=== PATIENT | female | born 1995 | race Caucasian/White ===

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

== ENCOUNTER 2017-01-20 18:42 | Emergency (ER) | payer OTHER, SELFPAY ==
[~2017-01-20] VITALS: Ht 152.4 cm; Wt 49.5 kg
[~2017-01-20 18:42] MED LIST: ZOFR4TAB3 PO
--- NOTE | 2017-01-20 19:24 | REP ---
Clinical: Trauma. Technique: AP, lateral, bilateral oblique views of the right ankle. Findings: Mild lateral swelling consistent with inversion injury. No acute fracture or dislocation. Joint spaces and ankle mortise are intact. No subcutaneous emphysema or radiodense foreign body. Impression: Mild lateral swelling. No acute fracture or dislocation. Signed by Gaston Hill MD 01/20/2017 07:14 P
[2017-01-20] MEDS ORDERED: IBUPROFEN 800 MG TAB PO ONE (20:45)
[2017-01-20] MEDS ORDERED: IBUPROFEN 800 MG TAB As Ordered ONE (20:46)
[2017-01-20 21:01] VITALS: BP 117/66
== END 2017-01-20 21:02 | disposition home or self-care (01) ==
LOC: M ED 18:42
DX: S93.401A Sprain of unspecified ligament of right ankle, initial encounter (principal); W10.9XXA Fall (on) (from) unspecified stairs and steps, initial encounter; Y92.099 Unspecified place in other non-institutional residence as the place of occurrence of the external cause; Y93.9 Activity, unspecified; Y99.9 Unspecified external cause status

== ENCOUNTER 2017-02-04 12:19 | Emergency (ER) | payer SELFPAY ==
[~2017-02-04] VITALS: Ht 152.4 cm; Wt 46.8 kg
[2017-02-04 12:20] VITALS: BP 109/63
[2017-02-04] MEDS ORDERED: ELIM5CRE2 TOP (15:11)
[2017-02-04] MEDS ORDERED: diphenhydrAMINE 25 MG CAP PO ONE (15:15)
== END 2017-02-04 15:29 | disposition home or self-care (01) ==
LOC: M ED 12:19
DX: B86 Scabies (principal); F17.210 Nicotine dependence, cigarettes, uncomplicated

== ENCOUNTER 2018-01-05 14:28 | Emergency (ER) | payer MEDICAID, SELFPAY, OTHER ==
[2018-01-05] MEDS: BENZONATATE 100 MG CAP PO (15:48)
[2018-01-05] MEDS: ACETAMINOPHEN 325 MG TAB PO (15:48)
== END 2018-01-05 16:04 | disposition home or self-care (01) ==
LOC: M ED 14:28
DX: J02.9 Acute pharyngitis, unspecified (principal)
CPT/HCPCS: 87880

== ENCOUNTER 2018-03-08 22:22 | Emergency (ER) | payer OTHER, MEDICAID ==
[2018-03-08] MEDS: BACTRIM 160MG/800MG DS TAB PO (23:45)
== END 2018-03-08 23:52 | disposition home or self-care (01) ==
LOC: M ED 22:22
DX: S51.842A Puncture wound with foreign body of left forearm, initial encounter (principal); W45.8XXA Other foreign body or object entering through skin, initial encounter; Y92.89 Other specified places as the place of occurrence of the external cause
CPT/HCPCS: 73090

== ENCOUNTER 2018-12-21 09:57 | Emergency (ER) | payer OTHER, SELFPAY ==
[~2018-12-21] VITALS: Ht 152.4 cm; Wt 48.6 kg
[~2018-12-21 09:57] MED LIST changes: +BACT800T5 PO; +ELIM5CRE2 TOP; +TESS100C PO; +ZOFR4TAB14 PO; -ZOFR4TAB3 PO
[2018-12-21 11:04] LABS: BASO % 0.4 % (0.0-1.0); EOS # 0.2 10^3/uL (0.0-0.50); EOS % 2.9 % (0.0-3.0); HEMATOCRIT 35.8 % (36.0-47.0); HEMOGLOBIN 11.9 g/dl (12.0-15.5); LYMPH % 27.2 % (24.0-44.0); MEAN CORPUSCULAR HGB CONC 33.2 g/dl (32.0-36.5); MEAN CORPUSCULAR VOLUME 87.1 fl (80.0-96.0); MONO # 0.9 10^3/uL (0.0-0.8); MONO % 12.7 % (0.0-5.0); NEUTROPHILS % 56.5 % (36.0-66.0); PLATELET COUNT, AUTOMATED 261 10^3/uL (150-450); RED BLOOD COUNT 4.11 10^6/uL (4.00-5.40); WHITE BLOOD COUNT 7.2 10^3/uL (4.0-10.0)
[2018-12-21 11:32] VITALS: BP 107/65
[2018-12-21] MEDS ORDERED: AUGM875T28 PO (11:36)
[2018-12-21] MEDS ORDERED: LOTR1CRE3 TOP (11:41)
[2018-12-21] MEDS ORDERED: BENZOCAINE 20% GEL 9GM TUBE (ANBESOL MAX STRENGTH) TOP ONE (11:45)
== END 2018-12-21 12:26 | disposition home or self-care (01) ==
LOC: M ED 09:57
DX: K02.9 Dental caries, unspecified (principal); K08.89 Other specified disorders of teeth and supporting structures; J02.9 Acute pharyngitis, unspecified; K05.10 Chronic gingivitis, plaque induced; Z72.0 Tobacco use

== ENCOUNTER 2019-05-30 18:56 | Inpatient (IN) | payer OTHER, SELFPAY ==
[~2019-05-30] VITALS: Ht 152.4 cm; Wt 44.8 kg
[2019-05-30] MEDS: NS 500 ML in IV 1 EA IV ONE (00:40)
[~2019-05-30 18:56] MED LIST changes: +AUGM875T28 PO; +LOTR1CRE3 TOP
[2019-05-30] MEDS ORDERED: NS 1,000 ML IV ONE (19:15)
[2019-05-30 19:54] LABS: HEMATOCRIT 37.1 % (36.0-47.0); HEMOGLOBIN 12.1 g/dl (12.0-15.5); MEAN CORPUSCULAR HEMOGLOBIN 28.5 pg (27.0-33.0); MEAN CORPUSCULAR HGB CONC 32.6 g/dl (32.0-36.5); MEAN CORPUSCULAR VOLUME 87.5 fl (80.0-96.0); PLATELET COUNT, AUTOMATED 256 10^3/uL (150-450); RED BLOOD COUNT 4.24 10^6/uL (4.00-5.40); WHITE BLOOD COUNT 23.6 10^3/uL (4.0-10.0)
--- NOTE | 2019-05-30 20:14 | ECGEPIP ---
[facility] - ED Test Date: 2019-05-30 Pat Name: FORTUNATO LAY Department: Room: - Gender: Female Utility Bill [employer]or: : 1995 Requested By: RYLEE Norman PA-C Order Number: [id number] Reading MD: Barber Samayoa Measurements Intervals Ray Rate: 128 P: 74 IN: 112 QRS: 88 QRSD: 88 T: 33 QT: 286 QTc: 418 Interpretive Statements SINUS TACHYCARDIA WITH SHORT IN INTERVAL RATE CHANGE COMPARED TO 11/22/14 Electronically Signed on 05-30-2019 20:13:31 EST by Barber Samayoa
[2019-05-30 20:23] LABS: ALBUMIN 3.2 GM/DL (3.2-5.2); ALT/SGPT 14 U/L (12-78); BILIRUBIN,DIRECT 0.1 MG/DL (0.0-0.2); BLOOD UREA NITROGEN 18 MG/DL (7-18); CALCIUM LEVEL 8.8 MG/DL (8.5-10.1); CARBON DIOXIDE LEVEL 24 MEQ/L (21-32); CHLORIDE LEVEL 101 MEQ/L (98-107); CK-MB VALUE MASS < 1.0 NG/ML (<3.6); CPK CREATINE PHOSPHOKINASE 85 U/L (26-192); CREATININE FOR GFR 1.01 MG/DL (0.55-1.30); GLOMERULAR FILTRATION RATE > 60.0 (>60); GLUCOSE, FASTING 107 MG/DL (70-100); MB/CK RELATIVE INDEX 1.18 (< OR =4); POTASSIUM SERUM 4.3 MEQ/L (3.5-5.1); SODIUM LEVEL 135 MEQ/L (136-145); TROPONIN I < 0.02 NG/ML (< 0.10)
[2019-05-30 20:28] LABS: LYMPHOCYTES 4 % (16-44); METAMYELOCYTES 1 % (0-0); NEUTROPHILS 93 % (28-66)
[2019-05-30 20:29] LABS: TOXIC VACUOLATION 2+
[2019-05-30 20:30] LABS: HCG, SERUM QUALITATIVE NEGATIVE (NEGATIVE); PLATELET ESTIMATE NORMAL (NORMAL)
[2019-05-30] MEDS ORDERED: diphenhydrAMINE INJ 50MG/ML VIAL (J1200) IV STA (20:40)
[2019-05-30] MEDS ORDERED: ceFAZolin SOD 1 GM in D5W MINI-BAG PLUS 50 ML IV ONE (20:45)
[2019-05-30] MEDS ORDERED: METOCLOPRAMIDE INJ 10MG/2ML VIAL (J2765) IV ONE (20:45)
[2019-05-30] MEDS ORDERED: KETOROLAC 30 MG/ML VIAL (J1885) IV ONE (20:45)
[2019-05-30 21:21] LABS: ERYTHROCYTE SEDIMENTATION RATE 48 mm/hr (0-20)
--- NOTE | 2019-05-30 21:52 | REPVR ---
PROCEDURE INFORMATION: Exam: US Right Non-Vascular Joint or Other Extremity Structure, Limited Upper Extremity Exam date and time: 05/30/2019 9:39 PM Age: 24 years old Clinical indication: Injury or trauma; Injury history: Spider bite; Initial encounter; Arm, lower; Right; Additional info: Swelling, spider bite, fever TECHNIQUE: Imaging protocol: Right US Non-Vascular Joint or Other Extremity Structure. Limited exam of the upper extremity. COMPARISON: No relevant prior studies available. FINDINGS: Soft tissues: Imaging at the area of clinical concern demonstrates a irregular fluid collection in the subcutaneous fat measuring 6 x 4 x 8 mm. This is surrounded by edema in the surrounding fat. Findings may be related to reactive changes from an insect bite versus a small superficial abscess. Bones/joints: Unremarkable. IMPRESSION: Imaging at the area of clinical concern demonstrates a irregular fluid collection in the subcutaneous fat. This is surrounded by edema in the surrounding fat. Findings may be related to reactive changes from an insect bite versus a small superficial abscess. Electronically signed by: Kayode Bey On 05/30/2019 21:52:22 PM
--- NOTE | 2019-05-30 22:02 | REPVR ---
PROCEDURE INFORMATION: Exam: CT Head Without Contrast Exam date and time: 05/30/2019 9:51 PM Age: 24 years old Clinical indication: Syncope and collapse; Additional info: Headache, fever, dizzy, syncope TECHNIQUE: Imaging protocol: Computed tomography of the head without contrast. Radiation optimization: All CT scans at this facility use at least one of these dose optimization techniques: automated exposure control; mA and/or kV adjustment per patient size (includes targeted exams where dose is matched to clinical indication); or iterative reconstruction. COMPARISON: CT Head without contrast 07/27/2015 6:51 PM FINDINGS: Brain: Normal. No hemorrhage. Unremarkable white matter. No mass effect. Ventricles: Normal. No ventriculomegaly. Bones/joints: Unremarkable. No acute fracture. Sinuses: Visualized sinuses are unremarkable. No fluid levels. Mastoid air cells: Visualized mastoid air cells are well aerated. Soft tissues: Unremarkable. IMPRESSION: No acute intracranial abnormality. Electronically signed by: Kayode Bey On 05/30/2019 22:01:40 PM
[2019-05-30] MEDS ORDERED: LevoFLOXacin IV 750 MG in IV 1 EA IV SCH (23:00)
[2019-05-30] MEDS ORDERED: NS 1,000 ML IV SCH (23:45)
[2019-05-30] MEDS ORDERED: ONDANSETRON 4MG/2ML VIAL (J2405) IV PRN (23:45)
[2019-05-31 00:04] LABS: APPEARANCE, URINE CLOUDY (CLEAR); BACTERIA, URINE AUTO 2+ (NEGATIVE); BILIRUBIN, URINE AUTO NEGATIVE (NEGATIVE); BLOOD, URINE BLOOD 1+ (NEGATIVE); COLOR, URINE AMBER (YELLOW); GLUCOSE, URINE (UA) AUTO NEGATIVE (NEGATIVE); KETONE, URINE AUTO NEGATIVE (NEGATIVE); LEUKOCYTE ESTERASE, URINE AUTO 3+ (NEGATIVE); MUCUS, URINE SMALL (NEGATIVE); NITRITE, URINE AUTO NEGATIVE (NEGATIVE); PROTEIN, URINE AUTO 2+ mg/dL (NEGATIVE); RBC, URINE AUTO 23 /HPF (0-3); SPECIFIC GRAVITY URINE AUTO 1.017 (1.002-1.035); SQUAMOUS EPITHELIAL CELL UR AU 2 /HPF (0-6); UROBILINOGEN, URINE AUTO 0.2 mg/dL (0.0-2.0); WBC, URINE AUTO TNTC /HPF (0-3)
[2019-05-31] MEDS: NS 500 ML in IV 1 EA IV ONE (00:40)
--- NOTE | 2019-05-31 00:40 | ED PDOC ---
Post-Departure Follow-Up ED procedure Note - IV access Patient admitted awaiting bed and notified by nursing loss of IV access. EJ veins noted. Attempted x 1 on right side unsuccessul. Switched to left side, skin prepped with alcohol swab, 20 guage IV inserted into left EJ vein . IV withdraws and flushes. Secured with Tegaderm. Tolerated well. ANJELICA POLLOCK MD May 31, 2019 00:40
--- NOTE | 2019-05-31 00:54 | HPEPDOC ---
[facility] Medical History & Physical Date of Admission May 31, 2019 Date of Service: May 31, 2019 History and Physical CHIEF COMPLAINT: Not feeling well, syncope, insect bite HISTORY OF PRESENT ILLNESS: This is a 24-year-old female presenting to ER after having a syncopal episode this morning and not feeling well for the last 5 days. Endorses possible spider bite Tuesday morning for she woke up with swelling of the right arm as well as a burning sensation. She states she was unable to make a fist and had red blotchy rash. She thought she was having allergic reaction two 25 mg Benadryl on Tuesday and noticed these symptoms resolved Tuesday morning. She also endorses on Tuesday she began to experience abdominal discomfort, dysuria. She describes the pain as sharp and stabbing in nature and occurs when she is trying to void. She describes it dysuria as burning in nature, foul- smelling and very concentrated for shes had decreased by mouth intake. She states that since Tuesday she has noticed nonbilious nonbloody vomiting and has lost some weight (~15) since then. She denies any constipation, diarrhea, or nausea. She does endorses having palpitations, subjective fevers, chills/rigor, night sweats and left back pain. She denies having any chest pain, shortness of breath, history of asthma, no other skin breakdown, lymphadenopathy, headaches. She does endorse having lightheadedness and dizziness. She did have a syncopal episode early this morning around 3 AM when she was in the kitchen. She states she was found down next to her stove by her . She believes she hit her head but denies any headaches or double vision. She thought she was feeling tire d so she went to bed without further intervention.As the day progressed she noticed she continued not to feel well so she came to the ER for further evaluation. In the ER she was found to be tachycardic, with a Tmax 100.8 and MAP of 60. She had a leukocytosis of 23.6, ESR 48, was given 1 dose of cefazolin and hospitalist team was then called for admission. PAST MEDICAL HISTORY: 1. Marijuana abuse 2. History of IV meth use, sober 2 years 3. Tobacco abuse HOME MEDICATIONS: Please see below. ALLERGIES: Please see below PAST SURGICAL HISTORY: None SOCIAL HISTORY: Lives with: and kids and feels safe at home. Employment: [employer] Tobacco use: Current smoker .5ppd- 2ppd for the last 2 years. ETOH: Denies,Illicit drug use: Hx of IV meth abuse, sober 2 years. CODE STATUS: Full code FAMILY HISTORY: Reviewed and noncontributory REVIEW OF SYSTEMS: 10 systems reviewed and negative other than HPI PHYSICAL EXAMINATION: VITAL SIGNS: See below GENERAL: Pleasant 24 year old female laying in bed, awake alert oriented speaking in complete sentences no acute distress HEENT: Atraumatic, normocephalic, pupils equal round and reactive, slight skin abrasion underneath the right eye healing wound from Dr. breaux, very poor dentition CARDIOVASCULAR: S1 S2 present, tachycardic rate, regular rhythm on telemetry no audible murmurs, rubs, gallops. RESPIRATORY: Clear to auscultation bilaterally. ABDOMINAL: Bowel sounds present abdomen soft, suprapubic tenderness with no di stention, guarding or rigidity. Positive Santana punch/CVA tenderness in the left. Tattoo appreciated on the left lower quadrant. No obvious skin breakdown noted. EXTREMITIES: No lower extremities cyanosis, edema or calf tenderness. Poor nail hygiene with no cyanosis. Good capillary refills less than 3 seconds, 5 x 6 indurated swelling appreciated in the medial aspect of the right forearm distal proximal to the elbow. The tender but no erythema and no increased warmth or obvious bite mcgraw noted. Healing burn on the left forearm NEUROLOGICAL: Spontaneously moves all 4 extremities cranial 2 through 12 grossly intact no gross focal deficits appreciated PSYCHOLOGICAL: Appropriate LABORATORY DATA: See below. MICROBIOLOGY: Please see below. IMAGIN05/31/[address] without contrast No acute intracranial abnormality. Right upper extremity ultrasound Imaging at the area of clinical concern demonstrates a irregular fluid collection in the subcutaneous fat. This is surrounded by edema in the surrounding fat. Findings may be related to reactive changes from an insect bite versus a small superficial abscess. ASSESSMENT & PLAN: This is a 24-year-old female who presented to the ER for syncope and not feeling well for the last 5 days. PROBLEMS: 1. Syncope. States loss of consciousness early this morning (~3 AM) unwitnessed possibly hit head. CT of the head was negative for any acute abnormalities. Possibly secondary to decreased by mouth intake/dehydration due to Pyelonephritis and decreasd PO intakere. Will obtain orthostatics 1 with IV fluids. s/p 1.5 L bolus in the ER. Well continue with IV fluids at 100 mL per hour for another 1.5 L. Will encourage good PO intake and Zofran PRN for nausea. Will monitor with remote telemetry for she was tachycardic in the ER and she had a syncopal episode. 2. Pyelonephritis. Complained of dysuria, suprapubic tenderness and CVA tenderness on exam this evening. Ordered UA. Imaging not needed for clinical picture consistent with pyelonephritis therefore well treat for acute pyelonephritis. Start Levaquin 750 mg every 24 hours for at 5 days and IV fluids. 3. Insect bite/spider bite. Forearm has 5 x 6 indurated swelling which is slightly tender to touch but no erythema, no increased warmth or obvious bite gladys noted on exam. Ultrasound shows irregular fluid collection in the subcutaneous fat consistent with insect right versus a small superficial abscess. s/p cefazolin X1 in the ER. At this current time no further antibiotics and will apply warm compress to help with swelling. Well monitor while admitted. 4. Tobacco and marijuana abuse. Congratulated her from reducing from 2 packs a day to half a pack a day. Educated the patient of the risks of smoking and the benefits of quitting. All her questions were answered today. Understands can provide nicotine patches if needed while admitted. 5. History of IV meth use, sober 2 years DVT PROPHYLAXIS: Lovenox DISPOSITION: Admit inpatient at least 2 midnights to [facility] Vital Signs Vital Signs Date Time Temp Pulse Resp B/P (MAP) Pulse Ox O2 Delivery O2 Flow Rate FiO2 05/31/19 00:45 129 18 95/51 (66) 100 Room Air 05/30/19 21:21 99.6 Laboratory Data Labs 24H Laboratory Tests 2 05/30/19 19:13: Nucleated Red Blood Cells % (auto) 0.0, Neutrophils 93H, Band Neutrophils 2, Lymphocytes (Manual) 4L, Metamyelocytes 1H, Toxic Vacuolation 2+, Platelet Estimate NORMAL, Erythrocyte Sedimentation Rate 48H, Anion Gap 10, Glomerular Filtration Rate > 60.0, Lactic Acid Level 1.6, Calcium Level 8.8, Total Bilirubin 1.0, Direct Bilirubin 0.1, Aspartate Amino Transf (AST/SGOT) 28, Alanine Aminotransferase (ALT/SGPT) 14, Alkaline Phosphatase 114, Total Creatine Kinase 85, Creatine Kinase MB < 1.0, Creatine Kinase MB Relative Index 1.18, Troponin I < 0.02, C-Reactive Protein, Quantitative 17.80H, Total Protein 7.0, Albumin 3.2, Albumin/Globulin Ratio 0.84L, Human Chorionic Gonadotropin, Qual NEGATIVE 05/30/19 23:40: Urine Color CAMILLE, Urine Appearance CLOUDYH, Urine pH 5.0, Urine Specific Myton 1.017, Urine Protein 2+H, Urine Glucose (Auto)(UA) NEGATIVE, Urine Ketones (Auto) NEGATIVE, Urine Blood 1+H, Urine Nitrite NEGATIVE, Urine Bilirubin NEGATIVE, Urine Urobilinogen 0.2, Urine Leukocyte Esterase (Auto) 3+H, Urine WBC (Auto) TNTCH, Urine RBC (Auto) 23H, Urine Hyaline Casts (Auto) 0, Urine Bacteria (Auto) 2+H, Urine Squamous Epithelial Cells 2, Urine Mucus (Auto) SMALL, Urine Sperm (Auto) CBC/BMP Laboratory Tests 05/30/19 19:13 Microbiology Microbiology 05/30/19 Blood Culture, Received Pending 05/30/19 Blood Culture, Received Pending Home Medications No Active Prescriptions or Reported Meds Allergies Coded Allergies: No Known Allergies (Unverified , 03/08/18) GME ATTESTATION My faculty preceptor for this patient encounter was physically present during the encounter and was fully available. All aspects of the patient interview, examination, medical decision making process, and medical care plan development were reviewed and approved by the faculty preceptor. The faculty preceptor is aware and concurs with the plan as stated in the body of this note and will attest to such by his/her cosignature. ATTENDING NOTE I personally saw, examined Ms. Finley and discussed her presentation and our assessment and management with Dr. Trujillo and I agree with her assessment and plan. Briefly, Ms. Finley is a young mother with a history of remote PSUD with med, currently occasionally uses marijuana, who had a recent insect bite with transient swelling and redness of her forearm that has since improved and subsequently developed dysuria that progressed to include left flank pain with nausea, emesis,fevers, chills and poor PO intake for days, with 2 reported syncopal episodes on the day of admission. In the ED she was septoid with +SIRS with hypotention, tachycardia, fever and had a source so she was given 1.5L of fluids and we started her on levaquin and continued fluids while her blood and urine cultures are pending. YANICK TRUJILLO DO May 31, 2019 00:54 MINGO PRAJAPATI MD May 31, 2019 06:57
[2019-05-31 04:00] VITALS: BP 109/63
[2019-05-31 07:54] VITALS: BP 101/56
[2019-05-31 08:09] LABS: HEMATOCRIT 34.4 % (36.0-47.0); HEMOGLOBIN 10.9 g/dl (12.0-15.5); MEAN CORPUSCULAR HEMOGLOBIN 28.4 pg (27.0-33.0); MEAN CORPUSCULAR HGB CONC 31.7 g/dl (32.0-36.5); MEAN CORPUSCULAR VOLUME 89.6 fl (80.0-96.0); PLATELET COUNT, AUTOMATED 197 10^3/uL (150-450); RED BLOOD COUNT 3.84 10^6/uL (4.00-5.40); WHITE BLOOD COUNT 21.7 10^3/uL (4.0-10.0)
[2019-05-31 08:47] LABS: BLOOD UREA NITROGEN 18 MG/DL (7-18); CALCIUM LEVEL 7.8 MG/DL (8.5-10.1); CARBON DIOXIDE LEVEL 25 MEQ/L (21-32); CHLORIDE LEVEL 106 MEQ/L (98-107); CREATININE FOR GFR 0.96 MG/DL (0.55-1.30); GLOMERULAR FILTRATION RATE > 60.0 (>60); GLUCOSE, FASTING 138 MG/DL (70-100); MAGNESIUM LEVEL 1.4 MG/DL (1.8-2.4); POTASSIUM SERUM 4.3 MEQ/L (3.5-5.1); SODIUM LEVEL 138 MEQ/L (136-145)
[2019-05-31] MEDS: ENOXAPARIN 40 MG/0.4 ML SYRINGE (J1650) SC SCH (09:21)
[2019-05-31] MEDS ORDERED: FIORICET TAB PO PRN (09:30)
[2019-05-31] MEDS ORDERED: METOCLOPRAMIDE INJ 10MG/2ML VIAL (J2765) IV ONE (09:30)
[2019-05-31] MEDS ORDERED: KETOROLAC 30 MG/ML VIAL (J1885) IV ONE (09:30)
[2019-05-31] MEDS: MAG SULF 1GM/100ML (MAG RUN) 1 GM in IV 1 EA IV SCH ×2 (09:56→11:53)
[2019-05-31] MEDS ORDERED: NS 1,000 ML IV ONE (10:00)
[2019-05-31 12:10] VITALS: BP_SYST 102; BP_SYST 104; BP_SYST 93; BP_DIAS 53; BP_DIAS 55; BP_DIAS 57
[2019-05-31] MEDS: CEFTAROLINE FOSAMIL 600 MG in D5W MINI-BAG PLUS 50 ML IV SCH ×2 (13:25→22:57)
[2019-05-31 16:00] VITALS: BP_SYST 110; BP_SYST 118; BP_SYST 119; BP_DIAS 64; BP_DIAS 99
[2019-05-31 17:40] VITALS: BP 102/69
--- NOTE | 2019-05-31 19:06 | ECHO ---
DATE OF PROCEDURE: 05/31/2019 REFERRING PHYSICIAN: Dr. Holder INDICATION: Syncope HEIGHT 152 cm WEIGHT 45 kg DIMENSIONS: IVS 0.8 LV 3.3 LVPW 0.8 LA 2.6 Aorta 2.4 Mitral E wave velocity 92, A-wave 91 E prime septal 12.3, E prime lateral 16.8 FINDINGS: The study is of good technical quality. The patient is in sinus rhythm. Left ventricle is normal size and systolic function with estimated LVEF 60-65%. Right ventricle is also normal size and systolic function. Both atria appear normal. All four cardiac valves were well seen and appear normal. No pericardial effusion is noted. Inferior vena cava is normal size. Aortic root and aortic arch appear normal. Abdominal aorta was not visualized. Doppler interrogation reveals competent aortic mitral tricuspid and pulmonic valves. Mitral inflow pattern and tissue Doppler imaging of mitral annulus reveal normal diastolic pattern. CONCLUSIONS: 1. Study is of good technical quality, the patient is in sinus rhythm. 2. Normal LV size, systolic and diastolic function. 3. No valvular disease. 4. Normal central venous pressure. 5. Unable to estimate pulmonary artery pressure but no signs to suggest pulmonary hypertension. 6. Normal echocardiogram COMMENT: Subacute bacterial endocarditis (SBE) prophylaxis is not recommended. No findings to explain syncopal event. MTDD
[2019-05-31 20:44] LABS: HEMATOCRIT 34.9 % (36.0-47.0); HEMOGLOBIN 11.3 g/dl (12.0-15.5); MEAN CORPUSCULAR HEMOGLOBIN 28.7 pg (27.0-33.0); MEAN CORPUSCULAR HGB CONC 32.4 g/dl (32.0-36.5); MEAN CORPUSCULAR VOLUME 88.6 fl (80.0-96.0); PLATELET COUNT, AUTOMATED 190 10^3/uL (150-450); RED BLOOD COUNT 3.94 10^6/uL (4.00-5.40); WHITE BLOOD COUNT 15.4 10^3/uL (4.0-10.0)
[2019-05-31 21:04] LABS: ATYPICAL LYMPH 1 % (0-5); LYMPHOCYTES 11 % (16-44); MONOCYTES 5 % (0-5); NEUTROPHILS 80 % (28-66); PLATELET ESTIMATE NORMAL (NORMAL)
[2019-05-31 21:05] LABS: DOHLE BODIES 1+; TOXIC VACUOLATION 1+
[2019-05-31] MEDS: ACETAMINOPHEN TAB 650MG DOSE (2X325MG) PO PRN (21:30)
[2019-05-31 22:00] VITALS: BP 102/52
[2019-06-01 06:00] VITALS: BP 98/56
[2019-06-01 06:40] LABS: HEMOGLOBIN 10.7 g/dl (12.0-15.5); MEAN CORPUSCULAR HEMOGLOBIN 28.5 pg (27.0-33.0); MEAN CORPUSCULAR HGB CONC 33.4 g/dl (32.0-36.5); MEAN CORPUSCULAR VOLUME 85.1 fl (80.0-96.0); PLATELET COUNT, AUTOMATED 208 10^3/uL (150-450); RED BLOOD COUNT 3.76 10^6/uL (4.00-5.40); WHITE BLOOD COUNT 19.5 10^3/uL (4.0-10.0)
[2019-06-01 07:01] LABS: BLOOD UREA NITROGEN 11 MG/DL (7-18); CARBON DIOXIDE LEVEL 24 MEQ/L (21-32); CHLORIDE LEVEL 109 MEQ/L (98-107); CREATININE FOR GFR 0.57 MG/DL (0.55-1.30); GLOMERULAR FILTRATION RATE > 60.0 (>60); GLUCOSE, FASTING 92 MG/DL (70-100); MAGNESIUM LEVEL 2.3 MG/DL (1.8-2.4); POTASSIUM SERUM 3.6 MEQ/L (3.5-5.1); SODIUM LEVEL 141 MEQ/L (136-145)
--- NOTE | 2019-06-01 07:43 | IPN ---
DATE: 05/31/2019 The patient complains of headache this morning that is generalized. No rhinorrhea. No sore throat. Patient denies any changes in vision. Describes the headache as diffuse without any radiation, diplopia. No upper or lower extremity weakness. Pain is well controlled. Right upper extremity cellulitis is improved without significant erythema. Patient was able to sleep last night. Denies any dysuria, urgency, or frequency. Still continues to have flank pain. No fever or chills. Temperature 99.5. Pulse 135, sinus tachycardia. Respiratory rate 18, blood pressure 101/56, 100% on room air. Generally, patient is awake, alert, oriented to person, place and time. Answering questions appropriately. Anicteric sclerae. No jaundice. Patient has poor dentition with missing teeth and dental caries. Neck is supple. Full range of motion. No cervical lymphadenopathy or thyromegaly. Patient has dry mucous membranes. Lungs are clear to auscultation. No wheezing, rales, or rhonchi. Heart: S1, S2, sinus rhythm. Abdomen is soft, nontender, and nondistended. Positive bowel sounds. Extremities: No cyanosis or clubbing. Right dorsal forearm has a 5 cm induration. No significant erythema. Some tenderness, mobile. LABORATORY DATA: White count 21,000, hemoglobin 10, hematocrit 34, platelets 197. Sodium 138, potassium 4.2, chloride 106, bicarbonate 25, BUN 8, creatinine 0.96, glucose of 138, magnesium of 1.4. IMAGING STUDIES: 6 x 4 x 8 mm subcutaneous irregular fluid collection surrounded by edema in the surrounding fat may reflect reactive changes versus superficial abscess. ASSESSMENT AND PLAN: This is a 24-year-old female with history of occasional headaches, marijuana use, IV meth use, sober for 2 years, presents to the emergency room with complaints of dysuria, urgency, admitted for pyelonephritis as well as an insect bite to the right forearm and syncopal episode, not feeling well for the past 5 days. Active issues are as follows: 1. Acute pyelonephritis. Patient was given intravenous Levaquin. Due to cellulitis of the right forearm, we will do double coverage with ceftaroline 600 IV every 12 hours. Continue IV fluid hydration. Pain medications with Tylenol. 2. Headache. Fioricet as needed. IV Toradol and Reglan given this morning. 3. Right forearm abscess. Patient is currently on ceftaroline for methicillin-resistant Staphylococcus aureus (MRSA) coverage, gram-positive and gram-negative coverage. 4. Hypomagnesemia, most likely secondary to decreased oral intake. Supplemented with IV magnesium 2 grams, 1 gram 1 hour apart. 5. Syncope, most likely either orthostatic or vasovagal. Patient is continued on telemetry. Obtain a 2D echocardiogram. DISPOSITION: Patient is medically stable for medical/surgical transfer but will need to continue telemetry. Patient will need 1-2 more days of antibiotic therapy. MTDD
[2019-06-01] MEDS: ENOXAPARIN 40 MG/0.4 ML SYRINGE (J1650) SC SCH (09:00)
[2019-06-01] MEDS ORDERED: NS 1,000 ML IV ONE (10:45)
[2019-06-01] MEDS: CEFTAROLINE FOSAMIL 600 MG in D5W MINI-BAG PLUS 50 ML IV SCH (11:10)
[2019-06-01] MEDS: ACETAMINOPHEN TAB 650MG DOSE (2X325MG) PO PRN (13:06)
[2019-06-01] MEDS ORDERED: LIDOCAINE 1% MDV 20ML VIAL As Ordered ONE (15:51)
[2019-06-01 17:12] VITALS: BP 114/75
[2019-06-01] MEDS ORDERED: SODIUM CHLORIDE 0.9% INJ 10 ML SYR IV PRN (17:30)
[2019-06-01] MEDS: NS 1,000 ML IV SCH (17:40)
[2019-06-01] MEDS: SODIUM CHLORIDE 0.9% INJ 10 ML SYR IV SCH (18:00)
[2019-06-01] MEDS ORDERED: LevoFLOXacin 750 MG TABLET PO SCH (18:00)
--- NOTE | 2019-06-01 18:43 | REP ---
MIDLINE INSERTION WITH ULTRASOUND GUIDANCE: REASON FOR EXAM: IV antibiotics needed PROCEDURE: Midline catheter insertion under ultrasound guidance. This procedure was performed by SHOAIB Styles, under the direct supervision of Dr. Lawson. The risks and benefits of the procedure were explained to the patient and informed consent was obtained prior to the procedure both verbally and written. Directly prior to the start of the procedure, a formal timeout was completed in the procedure room. The left basilic vein was localized using ultrasound guidance. The skin was prepped and draped in a sterile fashion. 1% lidocaine 10 mg/ml was used as a local anesthetic. Using ultrasound guidance the left basilic vein was cannulated and a 0.018 guidewire was inserted. The needle was removed and a 4.5 Salvadorean dilator and a Peel-Away sheath was inserted over the guidewire. A 4.5 Salvadorean single lumen catheter was cut to the length of 11 cm. The dilator was removed and the catheter was inserted over the guidewire. The Peel-Away sheath was removed and the catheter was flushed with heparinized saline as per hospital protocol. The catheter was affixed to the skin and a sterile dressing was applied. The patient tolerated the procedure well and there were no immediate complications. Reviewed by SHOAIB Almeida 06/01/2019 04:48 P Electronically Signed by Sharath Lawson MD 06/01/2019 06:32 P
[2019-06-01] MEDS ORDERED: CEFTAROLINE FOSAMIL 600 MG in D5W MINI-BAG PLUS 50 ML IV SCH (20:00)
--- NOTE | 2019-06-01 20:53 | IPN ---
DATE: 06/01/2019 Patient says that her arm has no pain. She has no dysuria, urgency, frequency. She says that she is comfortable and would like to go home soon. She remains afebrile. She continues to have induration of the right upper forearm. Left internal jugular is clean, dry. No erythema or tenderness. Temperature 98.9, pulse 102, respiratory rate 16, blood pressure 114/75, 100% on room air. Left internal jugular central venous catheter in place. No tenderness or erythema. LUNGS: Clear to auscultation. No wheezes, rales, or rhonchi. HEART: S1, S2, sinus rhythm. ABDOMEN: Soft, nontender, nondistended. EXTREMITIES: Patient has induration. No redness. No significant tenderness of the left. No edema. LABORATORY DATA: White count 19.5, hemoglobin 10, hematocrit 32, platelet count 208. Sodium 141, potassium 3.6, chloride 109, bicarbonate 24, BUN 11, creatinine 0.57, glucose 92. CRP of 18.1. IMPRESSION: 1. Right forearm cellulitis and abscess. Was on intravenous (IV) ceftaroline but lost IV access. Patient can be given Zyvox 600 by mouth twice a day for now. 2. Urinary tract infection (UTI) present on admission. Lost IV access. May be changed to oral Levaquin. 3. Sepsis secondary to cellulitis and UTI. 4. Pyelonephritis. Currently changed to oral antibiotics due to loss of venous access. 5. Loss of venous access. New line had been ordered, but may not be done. Therefore, patient's antibiotics have been changed. [facility]
[2019-06-01 22:00] VITALS: BP 110/68
[2019-06-01] MEDS: LINEZOLID 600MG TABLET (ZYVOX) PO SCH (22:08)
[2019-06-02] MEDS: NS 1,000 ML IV SCH (00:08)
[2019-06-02] MEDS: ACETAMINOPHEN TAB 650MG DOSE (2X325MG) PO PRN (01:47)
[2019-06-02] MEDS: SODIUM CHLORIDE 0.9% INJ 10 ML SYR IV SCH (05:09)
[2019-06-02 06:00] VITALS: BP 112/64
[2019-06-02 06:07] LABS: HEMATOCRIT 30.8 % (36.0-47.0); HEMOGLOBIN 10.5 g/dl (12.0-15.5); MEAN CORPUSCULAR HEMOGLOBIN 28.8 pg (27.0-33.0); MEAN CORPUSCULAR HGB CONC 34.1 g/dl (32.0-36.5); MEAN CORPUSCULAR VOLUME 84.6 fl (80.0-96.0); PLATELET COUNT, AUTOMATED 239 10^3/uL (150-450); RED BLOOD COUNT 3.64 10^6/uL (4.00-5.40); WHITE BLOOD COUNT 14.3 10^3/uL (4.0-10.0)
[2019-06-02 06:28] LABS: BLOOD UREA NITROGEN 7 MG/DL (7-18); CALCIUM LEVEL 7.9 MG/DL (8.5-10.1); CARBON DIOXIDE LEVEL 25 MEQ/L (21-32); CHLORIDE LEVEL 110 MEQ/L (98-107); CREATININE FOR GFR 0.51 MG/DL (0.55-1.30); GLOMERULAR FILTRATION RATE > 60.0 (>60); GLUCOSE, FASTING 99 MG/DL (70-100); MAGNESIUM LEVEL 1.7 MG/DL (1.8-2.4); POTASSIUM SERUM 3.6 MEQ/L (3.5-5.1); SODIUM LEVEL 141 MEQ/L (136-145)
[2019-06-02] MEDS: LINEZOLID 600MG TABLET (ZYVOX) PO SCH (08:15)
[2019-06-02] MEDS ORDERED: MAG SULF 1GM/100ML (MAG RUN) 1 GM in IV 1 EA IV SCH (09:00)
--- NOTE | 2019-06-02 09:46 | REP ---
LEFT UPPER EXTREMITY DOPPLER VENOUS ULTRASOUND: 06/02/2019 CLINICAL HISTORY: Left arm swelling, evaluate for DVT. The patient had left basilic vein midline catheter insertion yesterday afternoon. FINDINGS: Deep venous system of the left upper extremity is evaluated from the jugular and subclavian veins at the neck to the antecubital fossa. Distal tip of the midline catheter in the left basilic vein has a nonocclusive clot adjacent to it. The catheter extends from the mid upper arm to the axilla within the basilic vein. The jugular vein, subclavian vein and axillary veins show no evidence of thrombus or filling defect. The brachial veins are also without filling defects and show color flow and full compressibility. Cephalic vein was without evidence of thrombus. IMPRESSION: 1. There is nonocclusive thrombus in the left basilic vein associated with the distal tip of the midline catheter and along the distal course of that catheter. The catheter extends from the mid upper arm towards the axilla. 2. The subclavian, jugular, axillary and brachial veins are without thrombus. There is color flow throughout. The brachialis are compressible. 3. Cephalic vein without thrombus. 4. Finding represents thrombophlebitis in the superficial venous system. The basilic vein is not part of the deep system. Electronically Signed by Daniel Meredith MD 06/02/2019 07:53 P
[2019-06-02] MEDS ORDERED: MAGNESIUM OXIDE 400 MG TAB (MAG-OX) PO ONE (10:15)
[2019-06-02] MEDS ORDERED: LEVA750T7 PO (12:05)
[2019-06-02] MEDS ORDERED: XARE10TA PO (12:06)
[2019-06-02] MEDS ORDERED: RIVAROXABAN 10 MG TAB (XARELTO) PO SCH (18:00)
--- NOTE | 2019-06-02 18:19 | IPN ---
DATE: 06/02/2019 Midline was placed yesterday due to poor IV access and left internal jugular central venous catheter has been discontinued. After the midline was placed, the patient was noted to have increasing edema in the left upper extremity and was found to have a basilic vein nonocclusive thrombus. Overnight, the patient had no fever or chills. No pain. She has been given Zyvox and Levaquin due to no IV access. White count decreased to 14.3 from 19.5 yesterday. The patient is tearful that she is unable to go home today. Magnesium is low, given magnesium oxide. No other issues. VITAL SIGNS: Temperature 97.2, pulse 85, respiratory rate 16, blood pressure 112/64, 96% on room air. GENERAL: Awake, alert, oriented times three, answering questions appropriately. LUNGS: Clear to auscultation. No wheezing, rales, or rhonchi. HEART: S1, S2, sinus tachycardia. ABDOMEN: Soft, nontender, nondistended. Positive bowel sounds. EXTREMITIES: The patient has indurated area on the right forearm medial aspect measuring around 3 cm. No erythema. No significant tenderness. Mobile. Left upper extremity has edema. Midline in place. This will be discontinued due to new basilic vein thrombus. LABORATORY DATA: White count 14.3, hemoglobin 10, hematocrit 30, platelet count 239. Sodium 141, potassium 3.6, chloride 110, bicarbonate 25, BUN 7, creatinine 0.51, glucose of 99, CRP of 14.5. Two sets of blood cultures are negative. Venous Doppler left upper extremity: Nonocclusive thrombus left basilic vein associated with distal tip of midline catheter along distal course of the catheter, extending from mid arm towards the axilla. Thrombophlebitis in the superficial venous system. Basilic vein is not part of the deep system. ASSESSMENT AND PLAN: This is a 24-year-old female admitted for right forearm abscess with methicillin-resistant Staphylococcus aureus (MRSA), urinary tract infection (UTI), pyelonephritis with loss of venous access, status post midline with midline-associated thrombus. ACTIVE ISSUES: 1. Right forearm abscess with heavy methicillin-resistant Staphylococcus aureus (MRSA). The patient has been switched to Zyvox due to no IV access at this time, 600 mg twice a day, may deescalate once white count is normal, remains afebrile without chills, and clinical improvement down to Bactrim or doxycycline as outpatient. 2. Urinary tract infection (UTI), pyelonephritis. Currently on Levaquin 750 daily to complete a 10-day course. 3. Midline catheter-associated basilic vein superficial thrombus with thrombophlebitis. Elevate the upper extremity. Discontinue the midline. Xarelto at a lower dose 10 mg at bedtime for 45 days. No deep vein thrombosis (DVT) noted. DISPOSITION: The patient will need to improve clinically another two days. Discharge plans on Tuesday. MTDD
== END 2019-06-02 12:05 | disposition left against medical advice (07) | DRG 463 ==
LOC: M ED 18:56 → M ED INP 05-31 00:15 → ENRESERVDT 05-31 00:57 → ENRESERVTM 05-31 00:57 → M PCU 05-31 01:20 → M MSPAV 05-31 17:35
PROVIDERS: ADMIT Internal Medicine; ATTEND General Practice
PROC: 05H733Z Insertion of Infusion Device into Right Axillary Vein, Percutaneous Approach (ICD-10-PCS; principal; 2019-06-02)
DX: N10 Acute pyelonephritis (principal); I82.612 Acute embolism and thrombosis of superficial veins of left upper extremity; E83.42 Hypomagnesemia; R55 Syncope and collapse; F17.200 Nicotine dependence, unspecified, uncomplicated; F12.10 Cannabis abuse, uncomplicated; S50.871A Other superficial bite of right forearm, initial encounter; W57.XXXA Bitten or stung by nonvenomous insect and other nonvenomous arthropods, initial encounter; Y92.003 Bedroom of unspecified non-institutional (private) residence as the place of occurrence of the external cause; L03.113 Cellulitis of right upper limb; R51 Headache; Y83.1 Surgical operation with implant of artificial internal device as the cause of abnormal reaction of the patient, or of later complication, without mention of misadventure at the time of the procedure; T82.868A Thrombosis due to vascular prosthetic devices, implants and grafts, initial encounter

== ENCOUNTER → 2020-03-19 | Outpatient (CLI) | payer OTHER ==
[~2020-03-19] MED LIST changes: +LEVA750T7 PO; +XARE10TA PO
== END ==
LOC: M LABSMTC 13:56
PROVIDERS: ATTEND Family Medicine
DX: Z20.828 Contact with and (suspected) exposure to other viral communicable diseases (principal)

== ENCOUNTER → 2020-03-31 | Outpatient (CLI) | payer MEDICAID, OTHER ==
--- NOTE | 2020-03-31 12:52 | REP ---
INDICATION: DATING/ANATOMY COMPARISON: None. TECHNIQUE: Transabdominal obstetrical ultrasound with color Doppler evaluation. FINDINGS: Examination demonstrates a single live intrauterine in transverse presentation. motion is identified by technologist. Placenta is noted right lateral and grade 0 without evidence for placenta previa or abruption. Amniotic fluid volume is normal. Cervix measures 3.7 cm in length and appears closed.. Gestational age by current measurements 16 weeks 1 day with GENNA 09/14/2020. FHR equals 155 beats per minute. BPD: 3.4 cm 16 weeks 4 days HC: 12.6 cm 16 weeks 3 days AC: 10.1 cm 16 weeks 1 day FL: 2.0 cm 15 weeks 6 days HL: 2.0 cm 15 weeks 5 days HC/AC: 1.25 Estimated weight 144 grams (36thpercentile). Anatomical assessment demonstrates normal structures including cranium, facial features, lungs, diaphragm, stomach, cord insertion/three-vessel cord, bladder, and extremities. Limited evaluation of the cerebral ventricles, choroid plexus, nose/lips, heart/ventricular outflow tracts, kidneys and spine. IMPRESSION: Single live intrauterine in transverse lie demonstrating appropriate estimated weight. Anatomical limitations as noted above warrant re-evaluation and follow-up. <Electronically signed by Gaston Hill > 03/31/20 [id number]
== END ==
LOC: M WHC 09:04
PROVIDERS: ATTEND Obstetrics & Gynecology
DX: Z34.02 Encounter for supervision of normal first pregnancy, second trimester (principal); Z3A.16 16 weeks gestation of pregnancy

== ENCOUNTER → 2020-09-12 | Outpatient (CLI) | payer MEDICAID ==
--- NOTE | 2020-09-12 13:49 | REP ---
INDICATION: O26.849 GROWTH. COMPARISON: 03/31/2020. TECHNIQUE: Real-time sonographic evaluation of the gravid uterus performed. FINDINGS: Estimated gestational age is39 weeks 5 days, EDC 09/14/2020. Today's measurements indicate appropriate growth. Presentation: Cephalic Placenta posterior, grade 2, without evidence of placenta previa. heart rate is recorded at 140 beats per minute. Amniotic fluid is subjectively normal. ELLE 9.2, normal 7.1-21.7. Biometry chart: BPD: 89 mm, 36 weeks 0 days, less than 5th percentile. HC: 336 mm, 38 weeks 3 days, 29th percentile AC: 327 mm, 36 weeks 4 days, less than 5th percentile Femur length: 73 mm, 37 weeks 2 days, 14th percentile HC to AC ratio: 1.03, normal range 0.89-1.08. Estimated weight: 3058g, 35th percentile. SD ratio umbilical artery 2.35, normal 1.48-3.24. RI 0.57, normal 0.40-0.68. IMPRESSION: Viable single intrauterine gestation as above. Estimated weight 35th percentile. <Electronically signed by Candelario Archuleta > 09/12/20 [id number]
== END ==
LOC: M WHC 13:08
PROVIDERS: ATTEND Advanced Practice Midwife
DX: O26.843 Uterine size-date discrepancy, third trimester (principal)

== ENCOUNTER 2021-09-09 16:33 | Emergency (ER) | payer OTHER ==
[~2021-09-09] VITALS: Ht 152.4 cm; Wt 96.0 kg
[~2021-09-09 16:33] MED LIST changes: +DOK1CAP4 PO; +FERR325T81 PO; +IBUP80TA PO; +PERCOCET PO; +PRENTAB9 PO
[2021-09-09 16:34] VITALS: BP 117/82
[2021-09-09] MEDS ORDERED: NEXP1IMP SC (16:40)
[2021-09-09] MEDS ORDERED: ONDANSETRON 4MG ORAL DISINTEGRATING TAB PO ONE (17:45)
[2021-09-09] MEDS ORDERED: ALBUTEROL 90 MCG/ACT 8GM HFA INHALER INH ONE (18:30)
[2021-09-09] MEDS ORDERED: BENZONATATE 100MG CAPSULE PO ONE (18:30)
[2021-09-09 19:24] LABS: RSV AMPLIFICATION NEGATIVE (NEGATIVE)
[2021-09-09] MEDS ORDERED: VENTAER INH (20:05)
[2021-09-09] MEDS ORDERED: BENZ200C70 PO (20:05)
== END 2021-09-09 20:11 | disposition home or self-care (01) ==
LOC: M ED 16:33
DX: J09.X9 Influenza due to identified novel influenza A virus with other manifestations (principal); U07.1 COVID-19; G43.909 Migraine, unspecified, not intractable, without status migrainosus; Z79.3 Long term (current) use of hormonal contraceptives

== ENCOUNTER 2021-09-30 00:22 | Emergency (ER) | payer OTHER ==
[~2021-09-30] VITALS: Ht 152.4 cm; Wt 48.3 kg
[~2021-09-30 00:22] MED LIST changes: +BENZ200C70 PO; +NEXP1IMP SC; +VENTAER INH
[2021-09-30] MEDS ORDERED: AMOX500C PO (05:04)
[2021-09-30] MEDS ORDERED: AMOXICILLIN 500 MG CAP PO ONE (05:05)
[2021-09-30 05:20] VITALS: BP 125/71
== END 2021-09-30 05:21 | disposition home or self-care (01) ==
LOC: M ED 00:22
DX: J02.0 Streptococcal pharyngitis (principal); Z86.16 Personal history of COVID-19; F12.20 Cannabis dependence, uncomplicated; Z79.3 Long term (current) use of hormonal contraceptives

== ENCOUNTER → 2022-02-18 | Outpatient (CLI) | payer OTHER ==
[~2022-02-18] MED LIST changes: +AMOX500C PO; +ETON68IM SC; -NEXP1IMP SC
== END ==
LOC: M RAD 07:11
PROVIDERS: ATTEND Physician Assistant
DX: N83.202 Unspecified ovarian cyst, left side (principal); N13.30 Unspecified hydronephrosis; R19.09 Other intra-abdominal and pelvic swelling, mass and lump

== ENCOUNTER → 2022-02-19 | Outpatient (CLI) | payer OTHER | LOC: M PLAIMG 12:24 | PROVIDERS: ATTEND Physician Assistant | DX: N83.292 Other ovarian cyst, left side (principal) ==

== ENCOUNTER → 2022-02-24 | Outpatient (CLI) | payer OTHER ==
[2022-02-24 19:29] LABS: HCG, SERUM QUANTITATIVE < 1.0 MIU/ML; LDH LACTATE DEHYDROGENASE 173 U/L (84-246)
[2022-02-24 20:08] LABS: CA 125 21.6 U/ML (<30.2)
== END ==
LOC: M PLALAB 15:46
PROVIDERS: ATTEND Obstetrics & Gynecology
DX: N83.202 Unspecified ovarian cyst, left side (principal)

== ENCOUNTER → 2022-03-10 | Outpatient (CLI) | payer OTHER ==
[~2022-03-10] MED LIST changes: +COLA100C5 PO; +OXYC1TAB23 PO
== END ==
LOC: M LABSMTC 11:20
PROVIDERS: ATTEND Anesthesiology
DX: Z01.812 Encounter for preprocedural laboratory examination (principal); Z20.822 Contact with and (suspected) exposure to COVID-19

== ENCOUNTER 2022-03-11 06:10 | Day surgery (SDC) | payer OTHER ==
[~2022-03-11] VITALS: Ht 152.4 cm; Wt 50.5 kg
[~2022-03-11 06:10] MED LIST changes: -COLA100C5 PO; -OXYC1TAB23 PO
[2022-03-11] MEDS ORDERED: LR 1,000 ML IV SCH ×2 (06:25→06:40)
[2022-03-11] MEDS ORDERED: ceFAZolin SOD 2 GM in IV 1 EA IV ONE (06:40)
[2022-03-11] MEDS ORDERED: BUPIVACAINE HCL 0.25% 30ML VIAL As Ordered ONE (07:07)
[2022-03-11] MEDS ORDERED: SILVER NITRATE APPLICATOR (1 = QTY 10) As Ordered ONE (07:07)
[2022-03-11 07:08] LABS: HEMATOCRIT 35.9 % (36.0-47.0); HEMOGLOBIN 11.5 g/dl (12.0-15.5); MEAN CORPUSCULAR VOLUME 87.6 fl (80.0-96.0); PLATELET COUNT, AUTOMATED 327 10^3/uL (150-450); WHITE BLOOD COUNT 8.3 10^3/uL (4.0-10.0)
[2022-03-11] MEDS ORDERED: METHYLENE BLUE 0.5% (5MG/ML) 10 ML AMP (PROVAYBLUE) As Ordered ONE (07:08)
[2022-03-11] MEDS ORDERED: fentaNYL 100 MCG/2 ML INJECTION IV PRN (10:35)
[2022-03-11] MEDS ORDERED: ONDANSETRON 4MG 2ML VIAL IV PRN (10:35)
[2022-03-11] MEDS ORDERED: OXYC1TAB23 PO (10:53)
[2022-03-11] MEDS ORDERED: IBUP80TA PO (10:54)
[2022-03-11] MEDS ORDERED: COLA100C5 PO (10:55)
[2022-03-11] MEDS: oxyCODONE 5MG TAB PO PRN ×2 (11:48→12:01)
[2022-03-11] MEDS ORDERED: METOCLOPRAMIDE INJ 10MG/2ML VIAL (J2765 PER 1) IV PRN (11:50)
[2022-03-11 12:35] VITALS: BP 104/57
== END 2022-03-11 13:05 | disposition home or self-care (01) ==
LOC: M SDC 06:10
PROVIDERS: ATTEND Obstetrics & Gynecology
DX: D07.39 Carcinoma in situ of other female genital organs (principal); R10.2 Pelvic and perineal pain
CPT/HCPCS: 36415; 58661; 81025; 85027; 86850; 86900; 86901; 88307; J0690; J2405; S2900

== ENCOUNTER → 2022-05-17 | Outpatient (CLI) | payer OTHER ==
[~2022-05-17] MED LIST changes: +COLA100C5 PO; +OXYC1TAB23 PO
== END ==
LOC: M WHC 15:35
PROVIDERS: ATTEND Obstetrics & Gynecology
DX: C56.9 Malignant neoplasm of unspecified ovary (principal)

== ENCOUNTER → 2022-10-19 | Outpatient (CLI) | payer OTHER ==
[2022-10-19 18:54] LABS: HEMOGLOBIN 11.6 g/dl (12.0-15.5); MEAN CORPUSCULAR HEMOGLOBIN 28.9 pg (27.0-33.0); MEAN CORPUSCULAR HGB CONC 33.1 g/dl (32.0-36.5); MEAN CORPUSCULAR VOLUME 87.3 fl (80.0-96.0); PLATELET COUNT, AUTOMATED 292 10^3/uL (150-450); RED BLOOD COUNT 4.01 10^6/uL (4.00-5.40); WHITE BLOOD COUNT 8.5 10^3/uL (4.0-10.0)
[2022-10-19 19:29] LABS: HIV 1&2 SCREEN NEGATIVE (NEGATIVE)
[2022-10-19 19:37] LABS: HEPATITIS C VIRUS ABY INDEX 0.1 INDEX (<0.8)
[2022-10-19 20:02] LABS: GC DNA AMPLIFICATION NEGATIVE (NEGATIVE)
== END ==
LOC: M PLALAB 15:07
PROVIDERS: ATTEND Advanced Practice Midwife
DX: Z34.91 Encounter for supervision of normal pregnancy, unspecified, first trimester (principal)

== ENCOUNTER → 2022-12-24 | Outpatient (REF) | payer OTHER ==
[2022-12-24 14:52] LABS: GC DNA AMPLIFICATION NEGATIVE (NEGATIVE)
== END ==
LOC: M SFHCWAGY 13:01
PROVIDERS: ATTEND Specialist
DX: N39.0 Urinary tract infection, site not specified (principal); Z34.82 Encounter for supervision of other normal pregnancy, second trimester

== ENCOUNTER → 2022-12-28 | Outpatient (CLI) | payer OTHER | LOC: M RAD 12:47 | PROVIDERS: ATTEND Obstetrics & Gynecology | DX: Z34.91 Encounter for supervision of normal pregnancy, unspecified, first trimester (principal) ==

== ENCOUNTER 2023-01-14 03:00 | Emergency (ER) | payer OTHER ==
[~2023-01-14] VITALS: Ht 152.4 cm; Wt 50.8 kg
[2023-01-14] MEDS ORDERED: MULTTAB20 PO (03:18)
[2023-01-14] MEDS ORDERED: ONDANSETRON 4MG 2ML VIAL IV ONE (06:30)
[2023-01-14] MEDS ORDERED: NS 1,000 ML IV ONE (06:30)
[2023-01-14 06:59] LABS: BASO % 0.2 % (0.0-1.0); EOS % 0.1 % (0.0-3.0); HEMATOCRIT 31.3 % (36.0-47.0); HEMOGLOBIN 10.9 g/dl (12.0-15.5); LYMPH # 1.9 10^3/uL (1.5-5.0); LYMPH % 12.6 % (24.0-44.0); MEAN CORPUSCULAR HEMOGLOBIN 29.8 pg (27.0-33.0); MEAN CORPUSCULAR HGB CONC 34.8 g/dl (32.0-36.5); MEAN CORPUSCULAR VOLUME 85.5 fl (80.0-96.0); MONO % 6.7 % (2.0-8.0); NEUTROPHILS # 12.1 10^3/uL (1.5-8.5); NEUTROPHILS % 79.7 % (36.0-66.0); PLATELET COUNT, AUTOMATED 281 10^3/uL (150-450); RED BLOOD COUNT 3.66 10^6/uL (4.00-5.40); WHITE BLOOD COUNT 15.2 10^3/uL (4.0-10.0)
[2023-01-14 07:22] LABS: ALBUMIN 3.1 G/DL (3.2-5.2); ALKALINE PHOSPHATASE 68 U/L (46-116); ALT/SGPT 12 U/L (7.0-40); AST/SGOT 21 U/L (<34); BILIRUBIN,DIRECT 0.2 MG/DL (<0.4); BLOOD UREA NITROGEN 11 MG/DL (9-23); CALCIUM LEVEL 8.7 MG/DL (8.5-10.1); CARBON DIOXIDE LEVEL 20 MMOL/L (20-31); CHLORIDE LEVEL 104 MMOL/L (98-107); GLOMERULAR FILTRATION RATE > 60.0 (>60); GLUCOSE, FASTING 95 MG/DL (60-100); POTASSIUM SERUM 3.8 MMOL/L (3.5-5.1); SODIUM LEVEL 135 MMOL/L (136-145)
[2023-01-14] MEDS ORDERED: NS 500 ML IV ONE (07:55)
[2023-01-14 09:00] VITALS: BP 126/76; TEMP 97.7; O2SAT 98
== END 2023-01-14 09:13 | disposition home or self-care (01) ==
LOC: M ED 03:00
DX: O21.9 Vomiting of pregnancy, unspecified (principal); O99.012 Anemia complicating pregnancy, second trimester; Z3A.22 22 weeks gestation of pregnancy; Z79.899 Other long term (current) drug therapy
CPT/HCPCS: 80048; 80076; 81001; 85025; 96361; 96374; 99284; J2405

== ENCOUNTER → 2023-02-17 | Outpatient (CLI) | payer OTHER ==
[~2023-02-17] MED LIST changes: +MULTTAB20 PO
[2023-02-17 15:57] LABS: HEMATOCRIT 29.3 % (36.0-47.0); HEMOGLOBIN 9.8 g/dl (12.0-15.5); MEAN CORPUSCULAR HEMOGLOBIN 29.5 pg (27.0-33.0); MEAN CORPUSCULAR HGB CONC 33.4 g/dl (32.0-36.5); MEAN CORPUSCULAR VOLUME 88.3 fl (80.0-96.0); PLATELET COUNT, AUTOMATED 241 10^3/uL (150-450); RED BLOOD COUNT 3.32 10^6/uL (4.00-5.40); WHITE BLOOD COUNT 10.7 10^3/uL (4.0-10.0)
== END ==
LOC: M PLALAB 13:49
PROVIDERS: ATTEND Obstetrics & Gynecology
DX: O34.211 Maternal care for low transverse scar from previous cesarean delivery (principal)

== ENCOUNTER → 2023-04-22 | Outpatient (REF) | payer OTHER ==
[~2023-04-22] MED LIST changes: +IRON15CH PO
== END ==
LOC: M SFHCWAGY 09:55
PROVIDERS: ATTEND Obstetrics & Gynecology
DX: O34.211 Maternal care for low transverse scar from previous cesarean delivery (principal)

== ENCOUNTER 2023-05-10 07:05 | Inpatient (IN) | payer OTHER ==
[~2023-05-10] VITALS: Ht 152.4 cm; Wt 57.7 kg
[2023-05-10] VITALS (9 sets, daily range): BP systolic 99–133; BP diastolic 63–80; TEMP 97.5; O2SAT 98–100
[2023-05-10] MEDS ORDERED: LACTATED RINGER'S 1000 ML IV STA (07:21)
[2023-05-10] MEDS ORDERED: OXYTOCIN INJ 10UNITS/ML 1ML VIAL As Ordered ONE (07:22)
[2023-05-10] MEDS ORDERED: KETOROLAC 60MG 2ML VIAL As Ordered ONE (07:22)
[2023-05-10] MEDS ORDERED: ONDANSETRON 4MG 2ML VIAL As Ordered ONE (07:23)
[2023-05-10] MEDS ORDERED: MORPHINE PRES-FREE INJ 10 MG/10 ML VIAL As Ordered ONE (07:23)
[2023-05-10] MEDS ORDERED: PHENYLephrine 500MCG 5ML (100MCG/ML) SYRINGE As Ordered ONE (07:23)
[2023-05-10] MEDS ORDERED: METHYLERGONOVINE MALEATE 0.2MG/ML 1ML VIAL IM PRN ×2 (07:25→09:25)
[2023-05-10] MEDS ORDERED: OXYTOCIN INJ 10UNITS/ML 1ML VIAL IM PRN (07:25)
[2023-05-10] MEDS ORDERED: LR 1,000 ML IV SCH ×2 (07:25→11:50)
[2023-05-10] MEDS ORDERED: CARBOPROST TROMETHAMINE 250 MCG/ML AMP IM PRN (07:25)
[2023-05-10] MEDS ORDERED: HOME MED LIST COMPLETE! XX SCH (07:25)
[2023-05-10] MEDS ORDERED: BICITRA 30ML SOLN UDC PO ONE (07:25)
[2023-05-10] MEDS ORDERED: OXYTOCIN DRIP 30 UNITS in IV 1 EA IV PRN ×4 (07:25)
[2023-05-10] MEDS ORDERED: TRANEXAMIC ACID INJection 1,000 MG in NS 100 ML IV PRN (07:25)
[2023-05-10] MEDS ORDERED: ceFAZolin SOD 2 GM in IV 1 EA IV ONE (07:25)
[2023-05-10 07:44] LABS: HEMATOCRIT 31.9 % (36.0-47.0); HEMOGLOBIN 10.9 g/dl (12.0-15.5); MEAN CORPUSCULAR HEMOGLOBIN 29.2 pg (27.0-33.0); MEAN CORPUSCULAR HGB CONC 34.2 g/dl (32.0-36.5); MEAN CORPUSCULAR VOLUME 85.5 fl (80.0-96.0); PLATELET COUNT, AUTOMATED 227 10^3/uL (150-450); RED BLOOD COUNT 3.73 10^6/uL (4.00-5.40)
[2023-05-10] MEDS: PRENATAL VITAMINS CHEWABLE TABLET PO SCH (09:00)
[2023-05-10] MEDS: DOCUSATE SODIUM 100MG CAPSULE PO SCH ×2 (09:00→20:16)
[2023-05-10] MEDS ORDERED: OXYTOCIN DRIP 30 UNITS in IV 1 EA IV SCH (09:25)
[2023-05-10] MEDS ORDERED: RHOGAM 300MCG (1500IU) INJ IM SCH (09:25)
[2023-05-10] MEDS ORDERED: ACETAMINOPHEN 500 MG TAB PO PRN (09:25)
[2023-05-10] MEDS ORDERED: ONDANSETRON 4MG 2ML VIAL IV PRN ×2 (09:25→09:55)
[2023-05-10] MEDS: LR 1,000 ML IV SCH ×2 (09:25→14:09)
[2023-05-10] MEDS ORDERED: ANUSOL HC CREAM 30GM TOP PRN (09:25)
[2023-05-10] MEDS ORDERED: PERCOCET 5MG/325MG TAB PO PRN ×2 (09:25)
[2023-05-10] MEDS ORDERED: SIMETHICONE 80MG CHEW TAB PO PRN (09:25)
[2023-05-10] MEDS ORDERED: MORPHINE 2 MG/ML 1ML VIAL IV PRN ×2 (09:25→09:55)
[2023-05-10] MEDS ORDERED: PERCOCET PO (09:32)
[2023-05-10] MEDS ORDERED: IBUP80TA PO (09:32)
[2023-05-10] MEDS ORDERED: COLA100C5 PO (09:32)
[2023-05-10] MEDS ORDERED: OXYTOCIN 30UNITS IN 0.9% NaCl 500ML IV BAG As Ordered ONE (09:37)
[2023-05-10] MEDS: SLF 3 ML SYR IV SCH ×2 (09:55→18:04)
[2023-05-10] MEDS ORDERED: oxyCODONE 5MG TAB PO PRN (09:55)
[2023-05-10] MEDS ORDERED: NALOXONE INJ 0.4MG/1ML VIAL IV PRN ×2 (09:55)
[2023-05-10] MEDS ORDERED: fentaNYL 100 MCG/2 ML INJECTION IV PRN (09:55)
[2023-05-10] MEDS ORDERED: **NOTE PATIENT COMMENT** MISC XX SCH (09:55)
[2023-05-10] MEDS ORDERED: diphenhydrAMINE 50MG/ML VIAL IV PRN (09:55)
[2023-05-10] MEDS ORDERED: METOCLOPRAMIDE INJ 10MG/2ML VIAL IV PRN (09:55)
[2023-05-10] MEDS: KETOROLAC 30 MG/ML 1ML VIAL IV SCH ×2 (15:04→20:16)
[2023-05-11 02:00] VITALS: BP 117/64; O2SAT 98
[2023-05-11] MEDS: SLF 3 ML SYR IV SCH (03:35)
[2023-05-11] MEDS: KETOROLAC 30 MG/ML 1ML VIAL IV SCH (03:35)
[2023-05-11 06:00] VITALS: BP 102/59; O2SAT 96
[2023-05-11 06:56] LABS: HEMATOCRIT 27.6 % (36.0-47.0); HEMOGLOBIN 9.2 g/dl (12.0-15.5); MEAN CORPUSCULAR HEMOGLOBIN 29.1 pg (27.0-33.0); MEAN CORPUSCULAR HGB CONC 33.3 g/dl (32.0-36.5); MEAN CORPUSCULAR VOLUME 87.3 fl (80.0-96.0); PLATELET COUNT, AUTOMATED 129 10^3/uL (150-450); RED BLOOD COUNT 3.16 10^6/uL (4.00-5.40); WHITE BLOOD COUNT 7.9 10^3/uL (4.0-10.0)
[2023-05-11] MEDS: DOCUSATE SODIUM 100MG CAPSULE PO SCH ×2 (08:20→20:16)
[2023-05-11] MEDS: PRENATAL VITAMINS CHEWABLE TABLET PO SCH (08:20)
[2023-05-11 10:00] VITALS: BP 118/88; O2SAT 98
[2023-05-11] MEDS: IBUPROFEN 800 MG TAB PO SCH ×2 (11:37→18:32)
[2023-05-11 14:00] VITALS: BP 114/67; O2SAT 99
[2023-05-11 18:00] VITALS: BP 119/93; O2SAT 98
[2023-05-11 22:00] VITALS: BP 128/70; O2SAT 98
[2023-05-12 02:00] VITALS: BP 136/76; O2SAT 97
[2023-05-12] MEDS: IBUPROFEN 800 MG TAB PO SCH ×2 (03:07→10:44)
[2023-05-12 06:00] VITALS: BP 115/66; O2SAT 97
[2023-05-12] MEDS: DOCUSATE SODIUM 100MG CAPSULE PO SCH (07:52)
[2023-05-12] MEDS: PRENATAL VITAMINS CHEWABLE TABLET PO SCH (07:52)
[2023-05-12] MEDS ORDERED: MEASLES,MUMPS,RUBELLA VACCINE INJ (MMR-II) SC.IMMUN ONE (09:00)
== END 2023-05-12 10:45 | disposition home or self-care (01) | DRG 540 ==
LOC: M LDI 07:05 → M OBS 11:03
PROVIDERS: ADMIT Obstetrics & Gynecology; ATTEND Obstetrics & Gynecology
PROC: 10D00Z1 Extraction of Products of Conception, Low, Open Approach (ICD-10-PCS; principal; 2023-05-10 07:30)
DX: O34.211 Maternal care for low transverse scar from previous cesarean delivery (principal); Z37.0 Single live birth; Z3A.39 39 weeks gestation of pregnancy

== ENCOUNTER → 2023-12-05 | Outpatient (REF) | payer MEDICAID, OTHER | LOC: M SFHCWAGY 17:59 | PROVIDERS: ATTEND Obstetrics & Gynecology | DX: Z12.4 Encounter for screening for malignant neoplasm of cervix (principal) ==

== ENCOUNTER → 2024-01-19 | Outpatient (CLI) | payer OTHER | LOC: M WHC 14:27 | PROVIDERS: ATTEND Obstetrics & Gynecology | DX: N83.201 Unspecified ovarian cyst, right side (principal); Z86.03 Personal history of neoplasm of uncertain behavior ==

== ENCOUNTER 2024-02-13 11:52 | Emergency (ER) | payer OTHER ==
[2024-02-13] MEDS: ACETAMINOPHEN 500 MG TAB PO ONE (14:29)
[2024-02-13 15:31] VITALS: BP 101/61; TEMP 98.6; O2SAT 97
== END 2024-02-13 15:31 | disposition home or self-care (01) ==
LOC: M ED 11:52
DX: S52.124A Nondisplaced fracture of head of right radius, initial encounter for closed fracture (principal); Y92.019 Unspecified place in single-family (private) house as the place of occurrence of the external cause; Y93.9 Activity, unspecified; Y99.9 Unspecified external cause status; W01.0XXA Fall on same level from slipping, tripping and stumbling without subsequent striking against object, initial encounter; M25.421 Effusion, right elbow